=== PATIENT | female | born 1975 | race Caucasian/White ===

== ENCOUNTER 2018-01-01 01:35 | Observation (INO) ==
--- NOTE | 2018-01-01 05:09 | Internal Med History&Physical ---
<AshishJustus - Last Filed: 01/01/18 06:08> Date of Encounter: 01/01/18 Time of Encounter: 05:08 Internal Medicine - H&P: HPI Chief complaint: Fever History of present illness: Sherri Beard is a 42-year-old female with a PMH of thoracotomy, esophagectomy, bipolar disorder, GERD, and gastroparesis who presented to [facility] as a transfer from [facility] on 01/01/18. Patient presented to [facility] with the chief complaint of fever. She said that she had previously been seen last night for left flank pain, and was told that she had a UTI with accompanying kidney stone. Patient reported a fever of 101.8 degrees. Patient denied having any nausea, vomiting, diarrhea, chest pain, or dyspnea. Vital signs on presentation to [facility] were as follows: Temperature 97.2, pulse 87, respiratory rate 20, blood pressure 143/102, pulse ox 100. Labs were unremarkable. CT abdomen and pelvis demonstrated the followin mm left renal parenchymal stone. No obstructive uropathy. Large amount of dry stool in the colon. Urinalysis was unremarkable. Patient was given fentanyl for pain control and Zofran for nausea control. Patient was seen and examined at bedside; she appears in mild distress. She states that she has significant pain in her left flank. She reports that this pain is similar to her previous episodes of nephrolithiasis. She has previously been treated with lithotripsy. She also admits to having severe nausea. Currently denies having any fever or chills, urinary symptoms, headache, abdominal pain, vomiting, or diarrhea. No further complaints. Past Med Surg Social Fam HX - Past Medical History Medical history: no medical history Additional medical history: abdominal abcess, Psychiatric history: no psych history - Past Surgical History Additional surgical history: thoracotamy x 3 - Social History Smoking Status: Never smoker Smokeless Tobacco Status: No Alcohol use: none Drug use: none - Family History Mother Family Member Ethnicity: Non- Living Status: Still Living Hx Family Cardiac Disorders: Yes Internal Medicine - H&P: Meds Buspirone HCl [Buspar] 40 mg PO 1-2XD PRN 01/01/18 [History] FentaNYL PATCH [Duragesic] 12 mcg TD Q72H 01/01/18 [History] Ropinirole HCl [Requip] 0.5 mg PO PRN PRN 10/27/18 [History] Vortioxetine Hydrobromide [Trintellix] 20 mg PO DAILY 01/01/18 [History] Allergy/AdvReac Type Severity Reaction Status Date / Time cephalexin [From Keflex] Allergy Hives Verified 08/06/15 17:04 meperidine [From Demerol] Allergy Anaphylaxis Verified 08/06/15 17:04 morphine Allergy Hives Verified 08/06/15 17:04 codeine AdvReac Nausea Verified 08/06/15 17:04 piperacillin [From Zosyn] AdvReac Difficulty Verified 03/01/17 16:25 Breathing tazobactam [From Zosyn] AdvReac Difficulty Verified 03/01/17 16:25 Breathing All Systems PM: A 10-system review of systems was performed and is negative for pertinent findings except as documented above in the HPI. - Constitutional Constitutional: fever(s), malaise, no chills, no night sweats - EENT Eyes: as per HPI Ears: as per HPI Nose, mouth and throat: as per HPI - Cardiovascular Cardiovascular ROS IM: no chest pain, no diaphoresis, no dyspnea, no lightheadedness, no palpitations, no syncope - Respiratory Respiratory: no cough, no dyspnea, no wheezing, no excessive phlegm production - Gastrointestinal Gastrointestinal: nausea, no abdominal pain, no diarrhea, no hematemesis, no hematochezia, no melena, no vomiting - Genitourinary Genitourinary: flank pain, no change in urinary stream, no dysuria, no hematuria - Musculoskeletal Musculoskeletal ROS IM: back pain, no numbness, no tingling - Integumentary Integumentary IM: as per HPI, no rash, no unusual bruising - Neurological Neurological ROS: as per HPI, no confusion, no convulsions, no focal weakness, no numbness, no tingling, no tremor(s) - Psychiatric Psychiatric: as per HPI, no anxiety, no confusion, no depression - Endocrine Endocrine IM: as per HPI - Hematologic/Lymphatic Hematologic/Lymphatic: as per HPI, no easy bruising - Allergic/Immunologic Allergic/Immunologic: as per HPI - Constitutional Vitals: Temp Pulse Resp BP Pulse Ox 99.3 F 71 15 135/78 96 01/01/18 04:25 01/01/18 04:25 01/01/18 04:25 01/01/18 04:25 01/01/18 04:25 General appearance: Present: A&O X 3 Exam: see above - Head Head exam: Present: atraumatic, normocephalic - Eye Eye exam: Present: PERRL, conjuntiva pink, sclera anicteric Pupils: Present: PERRL - Neck Neck exam general surgery: Present: supple, trachea midline. Absent: lymphadenopathy - Respiratory Respiratory exam: Present: CTAB. Absent: accessory muscle use, rales, rhonchi, wheezes - Cardiovascular Cardiovascular exam: Present: RRR, +S1, +S2. Absent: diastolic murmur, gallop, rubs, systolic murmur - GI/Abdominal GI/Abdominal exam: Present: normal bowel sounds, soft, no peritoneal signs. Absent: distended, tenderness - Extremities Exam Extremities exam: Present: warm, radial pulses palpable and symmetrical. Absent: calf tenderness, cyanotic, pedal edema - Back Exam Back exam: Present: CVA tenderness (L) - Neurological Exam Neurological exam: Present: CN II-XII intact, oriented X3, no focal deficits. Absent: pronater drift, facial droop, speech deficit - Skin Skin exam: Present: dry, intact - Assessment and plan (1) Nephrolithiasis Current Visit: Yes Status: Acute Assessment and plan: Presented as a transfer from [facility] with flank pain and fevers CT scan of the abdomen and pelvis demonstrated a 4 mm left renal parenchymal stone without obstructive uropathy Patient has a known history of recurrent nephrolithiasis Plan: - IV fluid hydration with normal saline at 125 mils per hour - Pain control with Tylenol, fentanyl patch, Roxicodone, and Ultram - Consult to urology - NPO except medications - Time Spent With Patient Total time spent is greater than 50% in coordination of care (as documented) at patient's floor/unit and/or counseling patient: 25 - 35 minutes <Guillermo Alvarado - Last Filed: 01/01/18 19:19> Internal Medicine - H&P: HPI History of present illness: Ms. Beard is a 42 year old female All Systems PM: A 10-system review of systems was performed and is negative for pertinent findings except as documented above in the HPI. - Constitutional Vitals: Temp Pulse Resp BP Pulse Ox 98.3 F 61 18 113/67 99 01/01/18 15:31 01/01/18 15:31 01/01/18 15:31 01/01/18 15:31 01/01/18 15:31 Internal Med - H&P Results - Labs CBC & Chem 7: 01/01/18 05:43 01/01/18 05:43 Labs: Short CBC 01/01/18 Range/Units 05:43 WBC 5.4 (4.3-11.1) K/mcL Hgb 10.1 L (11.5-15.4) g/dL Hct 31.4 L (35.3-44.9) % Plt Count 221 (140-400) K/mcL Neutrophils # 2.3 (1.6-8.9) K/mcL BMP 01/01/18 05:43 Sodium 141 Potassium 4.1 Chloride 107 Carbon Dioxide 26 BUN 13 Creatinine 0.65 Glucose 100 Calcium 9.1 Liver Function 01/01/18 Range/Units 05:43 Total Bilirubin 0.5 (0.3-1.0) mg/dL AST 12 L (13-39) Units/L ALT 6 L (7-52) Units/L Alkaline Phosphatase 169 H (34-104) Units/L Albumin 3.9 (3.5-5.7) g/dL Urine 01/01/18 Range/Units 15:20 Urine Color Yellow (Yellow) Urine Clarity Clear (Clear) Urine pH 7.0 (5.0-8.0) pH Units Ur Specific [place] 1.013 (1.010-1.025) Urine Protein Negative (Neg-Trace) mg/dL Urine Glucose (UA) 100 H (Normal) mg/dL - Time Spent With Patient Total time spent is greater than 50% in coordination of care (as documented) at patient's floor/unit and/or counseling patient: - Attending Attestation Patient seen and examined. Chart reviewed. Case discussed with resident. Agree with assessment and plan. Patient being admitted for nephrolithiasis in the setting of single congenital kidney. Patient hemodynamically stable. Urology on board. Continue patient on fluids and pain management.
[2018-01-01] MEDS ORDERED: Naloxone 0.4 MG/ML INJ IVP PRN (05:43)
[2018-01-01] MEDS ORDERED: Acetaminophen 325 MG TABLET PO PRN (05:43)
[2018-01-01] MEDS ORDERED: 0.9 % Sodium Chloride 1,000 ML IVC SCH (05:45)
[2018-01-01] MEDS ORDERED: *HR* FentaNYL PATCH 12 MCG PATCH TD SCH (05:45)
[2018-01-01] MEDS: *HR* OxyCODONE Immed Rel 5 MG TABLET PO PRN ×3 (06:05→18:16)
[2018-01-01] MEDS: *HR* Heparin 5,000 UNIT/ML VIAL SQ SCH ×3 (06:06→22:09)
[2018-01-01 06:34] LABS: Basophils % 0.7 %; Eosinophils # 0.1 K/mcL (0.0-0.6); Eosinophils % 1.5 %; Hematocrit 31.4 % (35.3-44.9); Hemoglobin 10.1 g/dL (11.5-15.4); Immature Granulocytes % 0.2 % (0-4); Lymphocytes # 2.6 K/mcL (0.6-4.6); Lymphocytes % 48.5 %; Mean Corpuscular HGB Conc 32.2 g/dL (31.6-35.5); Mean Corpuscular Hemoglobin 26.2 pg (28.0-33.3); Mean Corpuscular Volume 81.6 fL (83.0-100.0); Monocytes # 0.4 K/mcL (0.0-1.3); Neutrophils # 2.3 K/mcL (1.6-8.9); Platelet Count 221 K/mcL (140-400); Red Blood Count 3.85 M/mcL (3.82-4.97); Red Cell Distribution Width 13.3 % (11.5-14.5); Segmented Neutrophils % 42.1 %
[2018-01-01 06:55] LABS: Alanine Aminotransferase 6 Units/L (7-52); Albumin 3.9 g/dL (3.5-5.7); Albumin/Globulin Ratio 1.6 (1.1-2.2); Alkaline Phosphatase 169 Units/L (34-104); Aspartate Amino Transferase 12 Units/L (13-39); BUN/Creatinine Ratio 20 (6-26); Bilirubin,Total 0.5 mg/dL (0.3-1.0); Blood Urea Nitrogen 13 mg/dL (6-20); Calcium 9.1 mg/dL (8.6-10.3); Carbon Dioxide 26 mEq/L (23-29); Chloride 107 mEq/L (98-107); Globulin 2.4 g/dL (2.4-3.5); Glucose 100 mg/dL (70-105); Osmolality,Calculated 292 (280-300); Potassium 4.1 mEq/L (3.5-5.1); Sodium 141 mEq/L (136-145); Total Protein 6.3 g/dL (6.4-8.9); eGFR For Non-African Americans > 60 (> 60)
[2018-01-01] MEDS: TRINTELLIX PO SCH (10:25)
[2018-01-01] MEDS ORDERED: D10% in Water 500 ML IVC PRN ×2 (11:20→11:54)
--- NOTE | 2018-01-01 12:17 | Urology - Consult Note ---
Date of Encounter: 01/01/18 Time of Encounter: 12:15 - Assessment and Plan (1) Left flank pain Current Visit: Yes Status: Acute Assessment and plan: Unclear etiology as her urine shows no signs of infection, she has no fever to s uggest pyelonephritis and she has no obstructing calculi. A 4 mm calculus in the renal parenchyma is incapable of causing pain. Nonobstructing stones less than 5 mm do not warrant surgical intervention as their spontaneous passage rate is exceedingly high. Patient's presentation is complicated by history of chronic pain with use of fentanyl patches at home. There is a remote chance that there is a small stone on CT, but this is quite unlikely in the setting of a negative urinalysis. Definitive evaluation for a missed ureteral stone on CT would require diagnostic ureteroscopy. I do not re commend diagnostic ureteroscopy at this time as I believe the yield is exceedingly low given her presentation and history. Plan: No urgent urologic interventions indicated. (2) Chronic pain Current Visit: Yes Status: Acute Assessment and plan: Her home use of fentanyl Complicates current presentation and complaints given no objective evidence of urologic abnormalities which could be related to pain. Plan: No indications for urgent urologic intervention Qualifiers: Chronic pain type: other chronic pain Qualified Code(s): G89.29 - Other chronic pain (3) Nephrolithiasis Current Visit: Yes Status: Acute Assessment and plan: 4 mm nonobstructing left parenchymal calculus in the setting of solitary kidney. Nonobstructing renal parenchymal calculi do not cause pain. The patient has a solitary left kidney. No indication for intervention of nonobstructive stones less than 5 mm as spontaneous passage rate approximately 90%. Plan: No indicati ons for urologic intervention Urology CN:HPI Consult date: 01/01/18 Reason for consult Urology: Other (Nephrolithiasis, left flank pain) Requesting physician: Nelsy Stevenson History of present illness: 42-year-old lady with history of solitary kidney and nephrolithiasis. The pat ient was transferred from [facility] last evening to our facility for reported UTI fevers and flank pain along with nephrolithiasis. Upon arrival here she is found to be afebrile with clean urine. Additionally, CT imaging here shows no hydroureteronephrosis and a nonobstructing 4 mm stone in left kidney. She continues to complain of flank pain despite no objective evidence of urologic abnormality. I have been asked to see the patient for further evaluation and management Past Med Surg Social Fam HX - Past Medical History Medical history: no medical history Additional medical history: abdominal abcess, Psychiatric history: no psych history - Past Surgical History Surgical History: appendectomy, cholecystectomy, hysterectomy, transplant, other Additional surgical history: thoracotamy x 3 - Social History Smoking Status: Never smoker Smokeless Tobacco Status: No Alcohol use: none Drug use: none - Family History Mother Family Member Ethnicity: Non- Living Status: Still Living Hx Family Cardiac Disorders: Yes Medications and Allergies Buspirone HCl [Buspar] 40 mg PO 1-2XD PRN 01/01/18 [History] FentaNYL PATCH [Duragesic] 12 mcg TD Q72H 01/01/18 [History] Ropinirole HCl [Requip] 0.5 mg PO PRN PRN 01/01/18 [History] Vortioxetine Hydrobromide [Trintellix] 20 mg PO DAILY 01/01/18 [History] Allergy/AdvReac Type Severity Reaction Status Date / Time cephalexin [From Keflex] Allergy Hives Verified 08/06/15 17:04 meperidine [From Demerol] Allergy Anaphylaxis Verified 08/06/15 17:04 morphine Allergy Hives Verified 08/06/15 17:04 codeine AdvReac Nausea Verified 08/06/15 17:04 piperacillin [From Zosyn] AdvReac Difficulty Verified 03/01/17 16:25 Breathing tazobactam [From Zosyn] AdvReac Difficulty Verified 03/01/17 16:25 Breathing Review of Systems - Constitutional chills, fever(s) - EENT Nose, mouth and throat: no sore throat - Cardiovascular no chest pain, no diaphoresis - Respiratory no cough, no dyspnea - Gastrointestinal abdominal pain - Genitourinary Genitourinary: no hematuria - Musculoskeletal back pain - Integumentary no lesions, no rash - Neurological no confusion, no sensory deficit - Psychiatric no anxiety, no confusion - Hematologic/Lymphatic no easy bleeding, no easy bruising - Allergic/Immunologic no throat swelling Exam Initial Vital Signs Temp Pulse Resp BP Pulse Ox 99.3 F 71 15 135/78 96 01/01/18 04:25 01/01/18 04:25 01/01/18 04:25 01/01/18 04:25 01/01/18 04:25 - General physical appearance Present: no distress - Eyes Present: normal ocular movement - ENT Present: normal nares, normal mucosa - Neck Present: trachea midline - Respiratory Present: normal respiratory effort - Cardiovascular Cardiovascular exam IM: RRR Urology Results - Labs 01/01/18 05:43 01/01/18 05:43 Abnormal lab results Hgb 10.1 g/dL (11.5-15.4) L 01/01/18 05:43 Hct 31.4 % (35.3-44.9) L 01/01/18 05:43 MCV 81.6 fL (83.0-100.0) L 01/01/18 05:43 MCH 26.2 pg (28.0-33.3) L 01/01/18 05:43 POC Glucose 109 mg/dL (70-99) H 01/01/18 05:42 AST 12 Units/L (13-39) L 01/01/18 05:43 ALT 6 Units/L (7-52) L 01/01/18 05:43 Alkaline Phosphatase 169 Units/L (34-104) H 01/01/18 05:43 Serum Total Protein 6.3 g/dL (6.4-8.9) L 01/01/18 05:43 Diabetes panel 01/01/18 Range/Units 05:43 Sodium 141 (136-145) mEq/L Potassium 4.1 (3.5-5.1) mEq/L Chloride 107 (98-107) mEq/L Carbon Dioxide 26 (23-29) mEq/L BUN 13 (6-20) mg/dL Creatinine 0.65 (0.60-1.20) mg/dL Glucose 100 (70-105) mg/dL Calcium 9.1 (8.6-10.3) mg/dL AST 12 L (13-39) Units/L ALT 6 L (7-52) Units/L Alkaline Phosphatase 169 H (34-104) Units/L Albumin 3.9 (3.5-5.7) g/dL Calcium panel 01/01/18 Range/Units 05:43 Calcium 9.1 (8.6-10.3) mg/dL Albumin 3.9 (3.5-5.7) g/dL Pituitary panel 01/01/18 Range/Units 05:43 Sodium 141 (136-145) mEq/L Potassium 4.1 (3.5-5.1) mEq/L Chloride 107 (98-107) mEq/L Carbon Dioxide 26 (23-29) mEq/L BUN 13 (6-20) mg/dL Creatinine 0.65 (0.60-1.20) mg/dL Glucose 100 (70-105) mg/dL Calcium 9.1 (8.6-10.3) mg/dL Adrenal panel 01/01/18 Range/Units 05:43 Sodium 141 (136-145) mEq/L Potassium 4.1 (3.5-5.1) mEq/L Chloride 107 (98-107) mEq/L Carbon Dioxide 26 (23-29) mEq/L BUN 13 (6-20) mg/dL Creatinine 0.65 (0.60-1.20) mg/dL Glucose 100 (70-105) mg/dL Calcium 9.1 (8.6-10.3) mg/dL Total Bilirubin 0.5 (0.3-1.0) mg/dL AST 12 L (13-39) Units/L ALT 6 L (7-52) Units/L Alkaline Phosphatase 169 H (34-104) Units/L Albumin 3.9 (3.5-5.7) g/dL All other labs normal. Consult Discharge Plan - Plan Referrals: Sylvia Clark MD [Primary Care Provider] -
[2018-01-01] MEDS: Levofloxacin 500 MG/100 ML 500 MG/100 ML BAG IVPB SCH (15:16)
[2018-01-01 15:42] LABS: Bilirubin,Urine Negative (Negative); Blood,Urine Negative (Negative); Clarity,Urine Clear (Clear); Color,Urine Yellow (Yellow); Glucose,Urine (UA) 100 mg/dL (Normal); Ketones,Urine Negative (Negative); Leukocyte Esterase,Urine Negative (Negative); Nitrite,Urine Negative (Negative); Protein,Urine Negative (Neg-Trace); Specific Gravity,Urine 1.013 (1.010-1.025); Urobilinogen,Urine Normal (Normal)
[2018-01-01] MEDS ORDERED: Clinimix E 5%-15% SOLUTION 2,000 ML with MVI, adult with vitamin K 10 ML, Magnesium S... IVC SCH (17:00)
[2018-01-01] MEDS: traMADol 50 MG TABLET PO PRN (22:08)
[2018-01-01] MEDS: Ondansetron 4 MG/2 ML VIAL IVP PRN (22:08)
[2018-01-01] MEDS: Mag Hydrox/Al Hydrox/Simeth 30 ML UDC PO PRN (22:08)
[2018-01-02] MEDS: rOPINIRole 0.25 MG TABLET PO SCH ×2 (00:23→23:31)
[2018-01-02] MEDS: *HR* OxyCODONE Immed Rel 5 MG TABLET PO PRN ×4 (00:23→18:34)
[2018-01-02] MEDS: *HR* Heparin 5,000 UNIT/ML VIAL SQ SCH ×2 (05:36→13:18)
[2018-01-02] MEDS: traMADol 50 MG TABLET PO PRN (05:36)
[2018-01-02 06:03] LABS: VBG Ionized Calcium 1.21 mmol/L (1.15-1.35)
[2018-01-02 06:22] LABS: BUN/Creatinine Ratio 31 (6-26); Blood Urea Nitrogen 18 mg/dL (6-20); Calcium 8.9 mg/dL (8.6-10.3); Carbon Dioxide 26 mEq/L (23-29); Chloride 105 mEq/L (98-107); Glucose 94 mg/dL (70-105); Osmolality,Calculated 286 (280-300); Phosphorous 5.1 mg/dL (2.7-4.5); Potassium 4.3 mEq/L (3.5-5.1); Sodium 137 mEq/L (136-145); eGFR For Non-African Americans > 60 (> 60)
[2018-01-02] MEDS: TRINTELLIX PO SCH (07:45)
[2018-01-02] MEDS: Levofloxacin 500 MG/100 ML 500 MG/100 ML BAG IVPB SCH (08:00)
[2018-01-02] MEDS: Ondansetron 4 MG/2 ML VIAL IVP PRN (10:14)
[2018-01-02] MEDS: Mag Hydrox/Al Hydrox/Simeth 30 ML UDC PO PRN ×2 (10:14→18:37)
--- NOTE | 2018-01-02 13:06 | Internal Med Progress Note ---
Hospitalist Progress Note - Encounter Date of Encounter: 01/02/18 Time of Encounter: 13:05 - Exam Vitals: Temp Pulse Resp BP Pulse Ox 98.5 F 89 16 98/59 96 01/02/18 11:20 01/02/18 11:20 01/02/18 11:20 01/02/18 11:20 01/02/18 11:20 Exam: xx - Assessment and Plan (1) Left flank pain Current Visit: Yes Status: Acute (2) Nephrolithiasis Current Visit: Yes Status: Acute (3) Nausea alone Current Visit: Yes Status: Acute - Time Spent with Patient Total time spent is greater than 50% in coordination of care (as documented) at patient's floor/unit and/or counseling patient: 25 - 35 minutes Plan of Care Discussed with: patient Internal Medicine: Result - Labs CBC & Chem 7: 01/01/18 05:43 01/02/18 05:54 Labs: BMP 01/02/18 05:54 Sodium 137 Potassium 4.3 Chloride 105 Carbon Dioxide 26 BUN 18 Creatinine 0.59 L Glucose 94 Calcium 8.9 Urine 01/01/18 Range/Units 15:20 Urine Color Yellow (Yellow) Urine Clarity Clear (Clear) Urine pH 7.0 (5.0-8.0) pH Units Ur Specific [place] 1.013 (1.010-1.025) Urine Protein Negative (Neg-Trace) mg/dL Urine Glucose (UA) 100 H (Normal) mg/dL Consult Discharge Plan - Plan Referrals: Sylvia Clark MD [Primary Care Provider] -
--- NOTE | 2018-01-02 14:39 | Internal Med Progress Note ---
Hospitalist Progress Note - Encounter Date of Encounter: 01/02/18 Time of Encounter: 14:37 - Subjective Interval History: SUBJECTIVE: The patient continues to have left flank pain. It seems to be relatively mild, when compared to the admission day. It is associated with off and on nausea but not vomiting. She seems to have normal urination. We have not seen her having fever or chills recently. This patient reports to me having, chronic generalized pain. She has had a total of over 50 surgery's. It started from surgery for resection of esophageal leiomyoma in 2003. Then, she underwent 4 thoracotomies, gastrectomy and nearly completed small bowel resection. She tells me that that she has only a small portion of small bowel connecting her lower esophagus to colon. The patient is severely malnourished. She suffers from chronic generalized pain syndrome. She suffers from chronic nausea but not vomiting. She got CVL on December 21 of this year. She started TPN only a few days before this hospitalization. She is allowed to eat small amounts; for pleasure. The patient was born only with one kidney; on the left side. OBJECTIVE: Skin: Free of rash and discoloration. ENMT: Oral/pharyngeal mucosa is normal in appearance. Eyes: Sclera is white. There is no discharge from eyes. Respiratory: Normal breath sounds; no crackles or wheezes. CV: Heart is regular; no gallop or murmur. GI: Abdomen is soft and not tender. There is no palpable mass or visceromegaly. : There is mild tenderness in the area of left flank. Neuro: There is no focal deficits. ADDITIONAL DATA: Her UA shows normal findings. CT of abdomen/pelvis shows a 4 mm calculus in the renal parenchyma on the left side. It is nonobstructing. It has hypermobility to be passed by the patient without any interventions. Hemoglobin is 10.1 with WBC of 5.4 thousand and normal platelet count. Creatinine is 0.65 with normal electrolytes. Liver function tests are normal. ASSESSMENT AND PLAN: Left flank pain/nephrolithiasis. See notes from urology. They feel that the patient does not need any intervention at this time. They feel that the patient does not need to be treated for urinary tract infection. The pain in the area of left flank seems to be mild. It is likely part of her chronic generalized pain syndrome. Her off and on nausea is chronic in nature. Severe protein calorie malnutrition with a BMI of 17. We restarted her TPN (originally started only a few days before this admission). History of esophageal leiomyoma. She had multiple complications after initial surgery attempting to resect it. According to the patient she had more than 50 surgery total. We will continue supportive treatments. DISPOSITION: I discussed all the findings with the patient. Will watch her for extra 24 hours for stability. We want her to go home tomorrow late morning. - Exam Vitals: Temp Pulse Resp BP Pulse Ox 98.5 F 89 16 98/59 96 01/02/18 11:20 01/02/18 11:20 01/02/18 11:20 01/02/18 11:20 01/02/18 11:20 Exam: xx - Assessment and Plan (1) Left flank pain Current Visit: Yes Status: Acute (2) Nephrolithiasis Current Visit: Yes Status: Acute (3) Severe protein-calorie malnutrition Current Visit: Yes Status: Chronic (4) Nausea alone Current Visit: Yes Status: Acute (5) Chronic generalized pain Current Visit: Yes Status: Chronic - Time Spent with Patient Total time spent is greater than 50% in coordination of care (as documented) at patient's floor/unit and/or counseling patient: 25 - 35 minutes Plan of Care Discussed with: patient Internal Medicine: Result - Labs CBC & Chem 7: 01/01/18 05:43 01/02/18 05:54 Labs: BMP 01/02/18 05:54 Sodium 137 Potassium 4.3 Chloride 105 Carbon Dioxide 26 BUN 18 Creatinine 0.59 L Glucose 94 Calcium 8.9 Urine 01/01/18 Range/Units 15:20 Urine Color Yellow (Yellow) Urine Clarity Clear (Clear) Urine pH 7.0 (5.0-8.0) pH Units Ur Specific [place] 1.013 (1.010-1.025) Urine Protein Negative (Neg-Trace) mg/dL Urine Glucose (UA) 100 H (Normal) mg/dL Consult Discharge Plan - Plan Referrals: Sylvia Clark MD [Primary Care Provider] -
[2018-01-02] MEDS ORDERED: Clinimix E 5%-15% SOLUTION 2,000 ML with MVI, adult with vitamin K 10 ML, Trace Eleme... IVC SCH (17:00)
[2018-01-03] MEDS: *HR* OxyCODONE Immed Rel 5 MG TABLET PO PRN ×3 (00:25→12:32)
[2018-01-03] MEDS: *HR* Heparin 5,000 UNIT/ML VIAL SQ SCH ×2 (00:26→06:28)
[2018-01-03 05:15] LABS: VBG Ionized Calcium 1.22 mmol/L (1.15-1.35)
[2018-01-03 05:24] LABS: BUN/Creatinine Ratio 32 (6-26); Blood Urea Nitrogen 19 mg/dL (6-20); Calcium 8.7 mg/dL (8.6-10.3); Carbon Dioxide 28 mEq/L (23-29); Chloride 104 mEq/L (98-107); Glucose 104 mg/dL (70-105); Osmolality,Calculated 287 (280-300); Potassium 4.1 mEq/L (3.5-5.1); Sodium 137 mEq/L (136-145); eGFR For Non-African Americans > 60 (> 60)
[2018-01-03] MEDS: Ondansetron 4 MG/2 ML VIAL IVP PRN (08:53)
--- NOTE | 2018-01-03 09:04 | Discharge Summary ---
Date of Encounter: 01/03/18 Time of Encounter: 09:02 - Discharge Diagnosis (1) Left flank pain Priority: Primary Status: Acute (2) Nephrolithiasis Priority: Primary Status: Acute (3) Severe protein-calorie malnutrition Priority: Primary Status: Chronic (4) Nausea alone Priority: Secondary Status: Chronic (5) Chronic generalized pain Priority: Secondary Status: Chronic Hospital course: Ms. Beard is a 42 year old female Discharge discussed with: patient - Time Spent with Patient Total time spent providing and/or coordinating discharge services: Greater than 30 minutes (40 minutes..) - Discharge Medications Prescriptions: Ondansetron ODT [Zofran ODT] 4 mg SL Q4HR PRN #10 tab.rapdis PRN Reason: Nausea Buspirone HCl [Buspar] 30 mg PO BID #60 tablet Home Medications: FentaNYL PATCH [Duragesic] 12 mcg TD Q72H 01/01/18 [History] Ropinirole HCl [Requip] 0.5 mg PO PRN PRN 01/01/18 [History] Vortioxetine Hydrobromide [Trintellix] 20 mg PO DAILY 01/01/18 [History] Buspirone HCl [Buspar] 30 mg PO BID #60 tablet 01/03/18 [Rx] Ondansetron ODT [Zofran ODT] 4 mg SL Q4HR PRN #10 tab.rapdis 01/03/18 [Rx] Allergies/Adverse Reactions: Allergy/AdvReac Type Severity Reaction Status Date / Time cephalexin [From Keflex] Allergy Hives Verified 08/06/15 17:04 meperidine [From Demerol] Allergy Anaphylaxis Verified 08/06/15 17:04 morphine Allergy Hives Verified 08/06/15 17:04 codeine AdvReac Nausea Verified 08/06/15 17:04 piperacillin [From Zosyn] AdvReac Difficulty Verified 03/01/17 16:25 Breathing tazobactam [From Zosyn] AdvReac Difficulty Verified 03/01/17 16:25 Breathing Date of admission: 01/01/18 04:00 Primary care physician: Sylvia Clark MD Consults: 01/01/18 05:47 Consult to Urology [CONS] Routine Consulting Provider: [facility] Reason for Consult: Nephrolithiasis in the setting Congenital Single Kidney Call Completed: No 01/01/18 10:17 dietary consult [Consult to Nutrition] [CONS] Routine Comment: Consulting Provider: NUTRITION Reason for Dietary Consult: TPN Start and Manage Discharging clinician: Murali Mathis Anticipated date of discharge: 01/03/18 - Constitutional Vitals: Temp Pulse Resp BP Pulse Ox 98.3 F 52 15 106/63 100 01/03/18 07:32 01/03/18 07:32 01/03/18 07:32 01/03/18 07:32 01/03/18 07:32 General appearance: Present: A&O X 3, no acute distress, answers questions ap propriately Exam: xx - Patient Status Disposition: Home Health Service Condition: Fair Functional capacity at discharge: independent ambulation Overall status at discharge: patient is back to baseline - Discharge Instructions Follow Up With: Sylvia Clark MD [Primary Care Provider] - 01/07/18 12:00 pm (They are asking for a 11:30 arrival time please. Thank you) Additional Instructions: TPN/PALLIATIVE CARE -- BEFORE THE ADMISSION.. - Diet and Activity Activity: resume usual activities as tolerated Diet: regular diet ( MUCH TOLERATED..) - VTE Deep Vein Thrombosis/Pulmonary Embolism Present on Admission: No
[2018-01-03] MEDS: Levofloxacin 500 MG/100 ML 500 MG/100 ML BAG IVPB SCH (09:20)
[2018-01-03 10:10] VITALS: BP 96/55
--- NOTE | 2018-01-03 10:29 | Physician Discharge Referral ---
Home Health/Hosp Referral Info Transfer to: Home Health Attending Provider: Inderjit Mathis MD Provider in Charge Post Discharge: PCP - Diagnosis (1) Left flank pain Priority: Primary Status: Acute (2) Nephrolithiasis Priority: Primary Status: Acute (3) Severe protein-calorie malnutrition Priority: Primary Status: Chronic (4) Nausea alone Priority: Secondary Status: Chronic (5) Chronic generalized pain Priority: Secondary Status: Chronic - Respiratory Orders None Smoking Cessation: Smoking cessation has been advised. For more information, call the [place] Tobacco Quit Line at 2-997-XXFV-NOW. - Diet/Nutrition Diet/Nutrition: List: TPN - Services Needed Following services are medically necessary services: Nursing, Home Health Aide - Transfer Medications Prescriptions: Ondansetron ODT [Zofran ODT] 4 mg SL Q4HR PRN #10 tab.rapdis PRN Reason: Nausea Buspirone HCl [Buspar] 30 mg PO BID #60 tablet Home Medications: FentaNYL PATCH [Duragesic] 12 mcg TD Q72H 01/01/18 [History] Ropinirole HCl [Requip] 0.5 mg PO PRN PRN 01/01/18 [History] Vortioxetine Hydrobromide [Trintellix] 20 mg PO DAILY 01/01/18 [History] Buspirone HCl [Buspar] 30 mg PO BID #60 tablet 01/03/18 [Rx] Ondansetron ODT [Zofran ODT] 4 mg SL Q4HR PRN #10 tab.rapdis 01/03/18 [Rx] Allergies/Adverse Reactions: Allergy/AdvReac Type Severity Reaction Status Date / Time cephalexin [From Keflex] Allergy Hives Verified 08/06/15 17:04 meperidine [From Demerol] Allergy Anaphylaxis Verified 08/06/15 17:04 morphine Allergy Hives Verified 08/06/15 17:04 codeine AdvReac Nausea Verified 08/06/15 17:04 piperacillin [From Zosyn] AdvReac Difficulty Verified 03/01/17 16:25 Breathing tazobactam [From Zosyn] AdvReac Difficulty Verified 03/01/17 16:25 Breathing Certification: Further, I certify that my clinical findings support that this patient is homebound (i.e. absences from home require considerable and taxing effort and are for medical reasons or worship services or infrequently or short duration when for other reasons) because: Homebound Reason: Patient requires assistance of a person or device to safely leave home Attestation: My signature below is to certify that this patient is under my care and that I, or nurse practitioner, or a physician's pastoral assistant working with me, has a dsji-dx-lust encounter with this patient.
[2018-01-03] MEDS: Mag Hydrox/Al Hydrox/Simeth 30 ML UDC PO PRN (11:08)
[2018-01-03] MEDS: TRINTELLIX PO SCH (11:35)
== END 2018-01-03 12:49 | disposition home health service (06) ==
LOC: 3ANU → SUATTDRO 04:00
PROVIDERS: ADMIT Internal Medicine; ATTEND Internal Medicine